=== PATIENT | female | born 1990 | race Caucasian/White ===

== ENCOUNTER 2017-04-25 15:51 | Emergency (ER) | payer SELFPAY ==
[2017-04-25 16:10] VITALS: BP 109/71
--- NOTE | 2017-04-25 17:46 | RADIOLOGY REPORT (SQ) ---
EXAM DESCRIPTION: CHEST PA/LAT COMPLETED DATE/TIME: 04/25/2017 5:33 pm REASON FOR STUDY: cp COMPARISON: None. EXAM PARAMETERS: NUMBER OF VIEWS: two views TECHNIQUE: Digital Frontal and Lateral radiographic views of the chest acquired. RADIATION DOSE: NA LIMITATIONS: none FINDINGS: LUNGS AND PLEURA: No localized infiltrate. No pleural effusion. Cannot exclude mild or e abena pulmonary edema. MEDIASTINUM AND HILAR STRUCTURES: No masses or contour abnormalities. HEART AND VASCULAR STRUCTURES: Heart normal size. No evidence for failure. BONES: No acute findings. HARDWARE: None in the chest. OTHER: No other significant finding. IMPRESSION: Cannot exclude mild pulmonary edema. TECHNICAL DOCUMENTATION: JOB ID: [id number] [employer]- All Rights Reserved
[2017-04-25] MEDS ORDERED: ALBUTEROL SULFATE HFA (90 MCG/PUFF) 8 GM MDI (1 MDI/ER DISP) IH PRN (18:45)
[2017-04-25] MEDS ORDERED: AMOXICILLIN TRIHYDRATE 500 MG CAPSULE PO ONE (18:46)
--- NOTE | 2017-04-25 18:47 | ER Document Report ---
ED General - General Chief Complaint: Flu Symptoms Stated Complaint: COLD SYMPTOMS Time Seen by Provider: 04/25/17 18:32 Mode of Arrival: Ambulatory Information source: Patient Notes: This is a 27-year-old female with a history of asthma presents to the emergency room with cough, sore throat, congestion, fever and chills. TRAVEL OUTSIDE OF THE [place] IN LAST 30 DAYS: No - HPI Onset: Last week Onset/Duration: Gradual Quality of pain: Dull Severity: Moderate Pain Level: 2 Associated symptoms: Chills, Nonproductive cough, Fever, Shortness of breath Exacerbated by: Denies Relieved by: Denies Similar symptoms previously: Yes Recently seen / treated by doctor: No - Related Data Allergies/Adverse Reactions: erythromycin base Allergy (Verified 04/25/17 16:56) ziprasidone [From Geodon] Allergy (Verified 04/25/17 16:56) Past Medical History - General Information source: Patient - Social History Smoking Status: Never Smoker Cigarette use (# per day): No Chew tobacco use (# tins/day): No Frequency of alcohol use: None Drug Abuse: None Lives with: Family Family History: None Patient has suicidal ideation: No Patient has homicidal ideation: No Pulmonary Medical History: Reports: Hx Asthma Renal/ Medical History: Denies: Hx Peritoneal Dialysis Psychiatric Medical History: Reports: Hx Depression Past Surgical History: Reports: Hx Section, Hx Tonsillectomy Review of Systems - Review of Systems Constitutional: denies: Chills, Fever EENT: No symptoms reported Cardiovascular: No symptoms reported Respiratory: See HPI Gastrointestinal: No symptoms reported Genitourinary: No symptoms reported Female Genitourinary: No symptoms reported Musculoskeletal: No symptoms reported Skin: No symptoms reported Hematologic/Lymphatic: No symptoms reported Neurological/Psychological: No symptoms reported Physical Exam - Vital signs Vitals: Temp Pulse Resp BP Pulse Ox 100.0 F 120 H 18 109/71 95 04/25/17 16:05 04/25/17 16:05 04/25/17 16:05 04/25/17 16:05 04/25/17 16:05 Notes: Physical exam: GENERAL: When he 7-year-old female, alert and oriented 3, no acute distress. She does feel febrile. HEAD: Atraumatic, normocephalic. EYES: Pupils equal round and reactive to light, extraocular movements intact, sclera anicteric, conjunctiva are normal. ENT: TMs normal, nares patent, oropharynx clear without exudates. Moist mucous membranes. NECK: Normal range of motion, supple without obvious mass or JVD. LUNGS: Breath sounds clear to auscultation bilaterally and equal. No wheezes rales or rhonchi. HEART: Regular rate and rhythm without murmurs, rubs or gallops. ABDOMEN: Soft, normoactive bowel sounds. No tenderness to palpation. No guarding, no rebound. No masses appreciated. EXTREMITIES: Normal range of motion, no pitting or edema. No clubbing or cyanosis. NEUROLOGICAL: Cranial nerves II through XII grossly intact. Normal speech, moving all extremities. PSYCH: Normal mood, normal affect. SKIN: Warm, Dry, normal turgor, no rashes or lesions noted. Course - Vital Signs Vital signs: Temp Pulse Resp BP Pulse Ox 100.0 F 120 H 18 109/71 95 04/25/17 16:05 04/25/17 16:05 04/25/17 16:05 04/25/17 16:05 04/25/17 16:05 - Diagnostic Test Radiology reviewed: Image reviewed, Reports reviewed - Chest x-ray shows possible early pneumonia. The chest x-ray is read as possible early pulmonary edema by the radiologist (this does not fit the clinical picture). Discharge - Discharge Clinical Impression: Bronchitis with bronchospasm Condition: Stable Disposition: HOME, SELF-CARE Additional Instructions: As we discussed, the flu study was negative. The chest x-ray shows that you might be developing an early pneumonia. In any event, we will treat you with antibiotics and will give you an albuterol inhaler to go. Recommendations: Take amoxicillin as prescribed. Take the inhaler: 2 puffs every 4-6 hours as needed. We do have a social security benefits interviewer that is part of the emergency room: You can call for information at [phone] and ask for Bhavani Garcia. Prescriptions: Amoxicillin 1 tab PO TID #30 tab
== END 2017-04-25 19:51 | disposition home or self-care (01) ==
LOC: ER 15:51
DX: J40 Bronchitis, not specified as acute or chronic (principal); J98.01 Acute bronchospasm; R05 Cough; J02.9 Acute pharyngitis, unspecified; R09.81 Nasal congestion; R50.9 Fever, unspecified; R06.02 Shortness of breath
CPT/HCPCS: 87804; 71020; J3490; 99284